=== PATIENT | female | born 1990 | race Caucasian/White ===

== ENCOUNTER 2018-09-21 04:45 | Inpatient (IN) | payer OTHER, SELFPAY ==
[2018-09-21 00:05] VITALS: BMI 29.6
[2018-09-21] MEDS: Lactated Ringers 1,000 ML 50 ML IV ×2 (04:50→05:51)
[2018-09-21 05:42] LABS: Hemoglobin 12.2 g/dl (12.0-15.0); Mean Corp Hgb Conc 33.9 g/gl (32-36); Mean Corpuscular Hgb 30.5 pg (27.0-32.0); Mean Platelet Vol. 9.2 fl (6.2-12.0); Platelet Count 290 K/mm3 (150-450); RBC Distribution Width CV 13.4 % (11.6-14.6); RBC Distribution Width SD 43.3 fl (35.1-43.9); Scan Indicated on CBC? Y/N NO; White Blood Count 13.7 K/mm3 (4.4-11.0)
[2018-09-21] MEDS: fentaNYL-bupivacaine (epidural) 100 ML BAG EPIDURAL (06:19)
[2018-09-21] MEDS: Oxytocin 30 units/NS 500 ml 30 UNITS/500 ML IV.SOLN 334 UNITS IV (07:24)
--- NOTE | 2018-09-21 07:32 | PCM.HP.OB ---
History Date of Admission: 09/21/18 Final PAMELA: 09/21/18 Final PAMELA Source: LMP Gestational age: 40 Weeks and 0 Days History of this : This is a 28 year-old, @ 40 wks gestation c/o contractions- pt was kept observation as she was not in active labor - pt then progressed and was admitted for labor at 4.5cm. pt denies LOF, had some light mucous pink spotting. Medical History: Medical History (Last Updated 09/21/18 @ 07:35 by Kelly Frye MD) History of depression Z87.59, Z86.59 Allergies No Known Allergies Allergy (Verified 09/21/18 01:07) Home Medications: Home Medications Vits [Prenatabs FA] 1 tablet PO DAILY 10/16/16 Ergocalciferol [Vitamin D] 1 tab PO DAILY 09/21/18 Smoking Status: Never smoker Alcohol: None Number of Fetus(es): 1 Heart Tracin mod vanessa, + accels, no decels. Category 1 History Past Pregnancies: Past Pregnancies Delivery Date Name GA/Weeks Outcome Route Weight Gender Labor Length Anesthesia Delivery Location Provider FOB Labs: GBS +, AB+, HIV neg, HEPB neg, RUB IMM, Syphilis neg, Expected Delivery Method: Spontaneous Vaginal Physical Exam General: Alert, Oriented x3 Abdomen: Soft, Gravid Neurological: Cranial nerves II-XII grossly intact CONTRACTING ANALYST: Normal external genitalia Estimated gestational size: Appropriate for gestational size Presentation: Cephalic Cervix Dilation (cm): 4.5 Effacement (%): 90 Assessment/Plan This is a 28 year-old, G 3P2 @ 40 weeks in labor 1) admit to L&D 2) monitor FHR/TOCO 3) epidural 4) PCN for +GBS 5) anticipate
--- NOTE | 2018-09-21 07:37 | HP.PCM_ITS ---
History Date of Admission: 09/21/18 Final PAMELA: 09/21/18 Final PAMELA Source: LMP Gestational age: 40 Weeks and 0 Days History of this : This is a 28 year-old, @ 40 wks gestation c/o contractions- pt was kept observation as she was not in active labor - pt then progressed and was admitted for labor at 4.5cm. pt denies LOF, had some light mucous pink spotting. Medical History: Medical History (Last Updated 09/21/18 @ 07:35 by Kelly Frye MD) History of depression Z87.59, Z86.59 Allergies No Known Allergies Allergy (Verified 09/21/18 01:07) Home Medications: Home Medications Vits [Prenatabs FA] 1 tablet PO DAILY 10/16/16 Ergocalciferol [Vitamin D] 1 tab PO DAILY 09/21/18 Smoking Status: Never smoker Alcohol: None Number of Fetus(es): 1 Heart Tracin mod vanessa, + accels, no decels. Category 1 History Past Pregnancies: Past Pregnancies Delivery Date Name GA/Weeks Outcome Route Weight Gender Labor Length Anesthesia Delivery Location Provider FOB Labs: GBS +, AB+, HIV neg, HEPB neg, RUB IMM, Syphilis neg, Expected Delivery Method: Spontaneous Vaginal Physical Exam General: Alert, Oriented x3 Abdomen: Soft, Gravid Neurological: Cranial nerves II-XII grossly intact GARBAGE TRUCK DRIVER: Normal external genitalia Estimated gestational size: Appropriate for gestational size Presentation: Cephalic Cervix Dilation (cm): 4.5 Effacement (%): 90 Assessment/Plan This is a 28 year-old, G 3P2 @ 40 weeks in labor 1) admit to L&D 2) monitor FHR/TOCO 3) epidural 4) PCN for +GBS 5) anticipate
--- NOTE | 2018-09-21 07:39 | PCM.OB.VAG ---
Vaginal Delivery Maternal Presentation: Active Labor Amniotic Membrane Rupture Type: Artificial Amniotic Fluid Description: Clear Final PAMELA: 09/21/18 Gestational age: 40 Weeks and 0 Days Date of Procedure: 09/21/18 Pre-Operative Diagnosis: Spontaneous labor, term gestation Post-Operative Diagnosis: same, live female infant Surgery/ Procedure Performed: Spontaneous Vaginal Delivery Type of Anesthesia: Epidural Description of Procedure: Examined patient- found to be fully dilated with membranes intact- AROM performed- clear fluid. With good maternal pushing efforts infant was delivered without difficulty. Delayed cord clamping performed. nursery staff present Presentation: Vertex Placental Delivery Description: Spontaneous Placenta Disposition: [facility] Cord Vessel Description: 3 Vessels Cord Entanglement: None Drain: Lopez to straight drain Estimated Blood Loss: 250 Infant A gender: Female (1 minute): 8 (5 minute): 9 Episiotomy Description: None Laceration: None Medications given after delivery: IV Pitocin Complications: None
[2018-09-21] MEDS: Oxytocin 30 units/NS 500 ml 30 UNITS/500 ML IV.SOLN 167 UNITS IV (07:54)
[2018-09-21] MEDS: 0.9% Saline Lock 10 ML Syringe IV (09:05)
[2018-09-21 09:15] VITALS: BP 112/63; PULSE 101; RESP 16; TEMP 37.1; O2SAT 98
[2018-09-21 13:00] VITALS: BP 121/61; PULSE 100; RESP 18; TEMP 37.2
[2018-09-21] MEDS: Ibuprofen 600 MG Tablet PO (13:10)
[2018-09-21 16:35] VITALS: BP 92/56; PULSE 80; RESP 16; TEMP 36.7
[2018-09-21 20:15] VITALS: BP 93/60; PULSE 99; RESP 17; TEMP 36.9; O2SAT 94
[2018-09-22 00:25] VITALS: BP 103/55; PULSE 84; RESP 16; TEMP 37; O2SAT 93
[2018-09-22] MEDS: Ibuprofen 600 MG Tablet PO (00:25)
[2018-09-22 04:19] VITALS: BP 101/56; PULSE 87; RESP 18; TEMP 36.4; O2SAT 100
[2018-09-22 08:49] VITALS: BP 111/55; PULSE 85; RESP 16; TEMP 36.7
--- NOTE | 2018-09-22 09:12 | PCM.PN.OB ---
Subjective: Doing well per patient and nursing staff. Ambulating and taking PO without difficulty. Voiding and passing flatus. Denies COTTON,vis chg's,CP,SOB, leg pain, increased vaginal bleeding or clots. Pain controlled. Planning D/C home tomorrow because did not get 4 hours of antibiotic coverage, GBS positive. without concerns. - Physical Exam General: Alert, Oriented x3 HEENT: Atraumatic, Normocephalic Lungs: Clear to auscultation, Normal air movement, No rhonchi, No wheeze Cardiovascular: Regular rate, Regular Rhythm Abdomen: Bowel Sounds Present, Soft, - - Fundus firm 2 below U Extremities: No edema Neurological: Deep Tendon Reflexes 2+/4 and Symmetrical, - - Ankita's negative Psych/Mental Status: Normal Affect, Appropriate Vital Signs Temp Pulse Resp BP Pulse Ox 98.0 F 85 16 111/55 L 100 09/22/18 08:49 09/22/18 08:49 09/22/18 08:49 09/22/18 08:49 09/22/18 04:19 Oxygen Delivery Method Room Air Weight: 156 lb 15.506 oz Body Mass Index (BMI) 29.6 Medical Necessity - Tobacco Use Smoking Status: Never smoker Assessment/Plan A: PPD#1 P: 1) Routine PP care and instructions given 2) Planning D/C home tomorrow.
[2018-09-22 14:00] VITALS: BP 107/75; PULSE 94; RESP 16; TEMP 36.4
[2018-09-22] MEDS: Acetaminophen 500 MG Tablet 1000 MG PO (14:26)
[2018-09-22 20:22] VITALS: BP 115/72; PULSE 85; RESP 16; TEMP 36.5
[2018-09-23 01:28] VITALS: BP 118/71; PULSE 89; RESP 18; TEMP 36.5
[2018-09-23] MEDS: Ibuprofen 600 MG Tablet PO (01:34)
--- NOTE | 2018-09-23 08:17 | PCM.PN.OB ---
Subjective: Patient doing well. Tolerating diet without nausea or vomiting. Ambulating without difficulty. Spontaneously voiding without difficulty. Denies fevers, lightheadedness, dizziness, chest pain, shortness of breath, leg pain. Lochia normal. Breast-feeding without problems. Pain well controlled. - Physical Exam General: Alert, Oriented x3 HEENT: Atraumatic Lungs: - - No increased resp effort Abdomen: Soft, Non Tender, - - FF@U-1 Extremities: No edema, No Calf Tenderness Skin: No rashes Neurological: Neuro grossly intact Psych/Mental Status: Normal Affect Vital Signs Temp Pulse Resp BP Pulse Ox 97.7 F L 89 18 118/71 100 09/23/18 01:28 09/23/18 01:28 09/23/18 01:28 09/23/18 01:28 09/22/18 04:19 Oxygen Delivery Method Room Air Weight: 156 lb 15.506 oz Body Mass Index (BMI) 29.6 Medical Necessity - Tobacco Use Smoking Status: Never smoker Assessment/Plan day 2 from a normal spontaneous vaginal delivery. - PPBC: Planning for vasectomy - without difficulty - Patient doing well - Dispo: D/c home today. Discharge instructions given. RTO 4-6 wks for visit
--- NOTE | 2018-09-23 08:20 | PCM.DCVAG ---
Discharge Diet: No Restrictions Discharge Activity: May Drive, May Shower May resume sexual activity in: 4-6 weeks Weight Bearing Status: Full weight bearing Lifting Restrictions: None Call your doctor if you observe: Fever of 101 or Higher, Inability to urinate, Inability to have a bowel movement, Using more than one pad per hour, Shortness of breath, Dizziness, Chest pain, Calf discomfort, Uncontrolled pain Additional Instructions: If you experience any of the following, contact your healthcare provider. Bleeding that soaks a pad every hour for 2 hours Fever 100.4 or higher Unrelieved incision or abdominal pain Swelling, redness, discharge or bleeding from your incision or episiotomy site Your incision begins to separate Problems urinating (including inability to urinate or burning while urinating). Visual changes Severe headache Flu-like symptoms Pain or redness in one of both of your breasts Pain, warmth, tenderness or swelling in your legs, especially the calf area Frequent nausea and vomiting Symptoms of depression or anxiety If you experience any of the following, call 911 or go to the nearest Emergency Room. Chest pain Problems breathing Seizure activity Partial or complete paralysis of a body part, slurred speech, weakness or drooping of the face, or a sudden inability to walk or hold your balance Allergies/Adverse Reactions: Allergies No Known Allergies Allergy (Verified 09/21/18 01:07) Medications to take at Discharge Vits [Prenatabs FA] 1 tablet PO DAILY 10/16/16 Ergocalciferol [Vitamin D] 1 tab PO DAILY 09/21/18 When: Follow up in 4-6 weeks for visit Primary Care Physician: Care Physician,No Primary [Primary Care Provider] - Test Results: Test results from this visit will be discussed in further detail at your follow-up appointment, if applicable.
--- NOTE | 2018-09-23 08:21 | DCINST_ITS ---
Discharge Diet: No Restrictions Discharge Activity: May Drive, May Shower May resume sexual activity in: 4-6 weeks Weight Bearing Status: Full weight bearing Lifting Restrictions: None Call your doctor if you observe: Fever of 101 or Higher, Inability to urinate, Inability to have a bowel movement, Using more than one pad per hour, Shortness of breath, Dizziness, Chest pain, Calf discomfort, Uncontrolled pain Additional Instructions: If you experience any of the following, contact your healthcare provider. * Bleeding that soaks a pad every hour for 2 hours * Fever 100.4 or higher * Unrelieved incision or abdominal pain * Swelling, redness, discharge or bleeding from your incision or episiotomy site * Your incision begins to separate * Problems urinating (including inability to urinate or burning while urinating). * Visual changes * Severe headache * Flu-like symptoms * Pain or redness in one of both of your breasts * Pain, warmth, tenderness or swelling in your legs, especially the calf area * Frequent nausea and vomiting * Symptoms of depression or anxiety If you experience any of the following, call 911 or go to the nearest Emergency Room. * Chest pain * Problems breathing * Seizure activity * Partial or complete paralysis of a body part, slurred speech, weakness or drooping of the face, or a sudden inability to walk or hold your balance Allergies/Adverse Reactions: Allergies No Known Allergies Allergy (Verified 09/21/18 01:07) Medications to take at Discharge Vits [Prenatabs FA] 1 tablet PO DAILY 10/16/16 Ergocalciferol [Vitamin D] 1 tab PO DAILY 09/21/18 When: Follow up in 4-6 weeks for visit Primary Care Physician: Care Physician,No Primary [Primary Care Provider] - Test Results: Test results from this visit will be discussed in further detail at your follow- up appointment, if applicable.
[2018-09-23 08:32] VITALS: BP 109/74; PULSE 95; RESP 16; TEMP 36.6; O2SAT 96
== END 2018-09-23 11:59 | disposition home or self-care (01) | DRG 806 ==
LOC: WPOUT 04:45 → WP 04:46
PROVIDERS: Admitting Provider Obstetrics & Gynecology; Referring Provider Obstetrics & Gynecology; Visit Provider Obstetrics & Gynecology
DX: O48.0 Post-term pregnancy (principal); O98.82 Other maternal infectious and parasitic diseases complicating childbirth; Z37.0 Single live birth; Z3A.40 40 weeks gestation of pregnancy; B95.1 Streptococcus, group B, as the cause of diseases classified elsewhere
CPT/HCPCS: 59025; 59050; 85027; 86850; 86900; 99218; J7120; A4216; G0378